=== PATIENT | male | born 1990 | race Two or more races ===

== ENCOUNTER 2016-07-04 18:25 | Emergency (ER) | payer OTHER ==
[~2016-07-04] VITALS: Ht 172.7 cm; Wt 81.6 kg
[2016-07-04 19:45] VITALS: BP 145/82
== END 2016-07-04 19:46 | disposition home or self-care (01) ==
LOC: ER 18:27
DX: R56.9 Unspecified convulsions (principal); Z88.0 Allergy status to penicillin; F17.210 Nicotine dependence, cigarettes, uncomplicated
CPT/HCPCS: 99283; A4606; Z7610